=== PATIENT | female | born 1980 | race Caucasian/White ===

== ENCOUNTER → 2017-10-03 | Day surgery (SDC) | payer OTHER, SELFPAY ==
--- NOTE | 2017-10-02 12:46 | Pre Op History & Physical ---
CHIEF COMPLAINT: Lesion in the hypopharynx. HISTORY OF PRESENT ILLNESS: This 36-year-old female was noted to have a lesion in her hypopharynx during an EGD by Dr. Laguerre. The patient has history of globus sensation and hoarseness for about a year. She denies any dysphagia or odynophagia. SOCIAL HISTORY: The patient is a nonsmoker, nondrinker. She has no weight changes. REVIEW OF SYSTEMS: Showed no recent cardiovascular, respiratory or GI problem. PAST MEDICAL HISTORY: Patient has no significant medical problem. PAST SURGICAL HISTORY: Patient has previous posterior fossa decompression, cholecystectomy, cervical fusion, endoscopic sinus surgery, tonsillectomy, breast implant, dental implant, and LASIK surgery to the eye. ALLERGIES: SHE CLAIMS THAT SHE IS ALLERGIC TO ALL IV ANTIBIOTICS AND PENICILLIN. MEDICATIONS: She is on Adderall, triazolam, glycopyrrolate, Lasix, ranitidine, fluoxetine, sucralfate. FAMILY HISTORY: Noncontributory. PHYSICAL EXAMINATION: VITAL SIGNS: Within normal limits. EAR: Showed normal tympanic membranes bilaterally. NOSE: Showed no obvious abnormality. Nasal endoscopy showed questionable polypoid changes in the left piriform sinus area. Mobile vocal folds were noted. No lesion was noted in the other part of the hypopharynx. THROAT: Oropharynx and oral cavity showed no tonsil with Mallampati level 2. NECK: Showed no lymph node or thyroid palpable. CHEST: Showed good air entry bilaterally. CARDIOVASCULAR: Showed S1 and S2. No murmur noted. Mrs. Grissom has a questionable lesion on the piriform sinus on the left side with a history of globus sensation. The suggested treatment is panendoscopy, microlaryngoscopy, biopsy and other necessary procedures. Complications of procedure include but not limited bleeding, infection, perforation of esophagus, pneumomediastinum, mediastinitis, airway compromise, persistent recurrence of the problem. The alternatives would be continued observation, continued antibiotic therapy, topical nasal steroid therapy, systemic steroid therapy, decongestant. The patient has elected to undergo the surgical procedure. Job#: [id number] EV cc:ASHLEIGH MILLAN MD
[~2017-10-03] MED LIST: ACETAMINOPHEN 1000 MG/100 ML 100 ML IV ONE; ADDERALL 30 MG30 MG PO; CARAFATE1 GM/10 ML PO; DEXAMETHASONE SOD PHOS INJ 4 MG/ML VIAL ONE; DIPHENHYDRAMINE HCL INJ 50 MG/ML VIAL ONE; FLUOXETINE HCL40 MG PO; GLYCOPYRROLATE1 MG PO; HALCION PO; LASIX40 MG PO; LIDOCAINE HCL 2% LOCAL INJ 5 ML SDV VIAL INJ ONE; MEPERIDINE HCL INJ 50 MG/ML INJ ONE; MORPHINE SULFATE 2 MG/ML SYR ONE; ONDANSETRON HCL INJ 2 MG/ML VIAL ONE; PROPOFOL IV EMULSION 10 MG/ML 20 ML VIAL ONE; RANITIDINE HCL150 MG PO; ROCURONIUM BROMIDE 10 MG/ML 5ML VIAL ONE; SEVOFLURANE INHAL SOLN 250 ML PEN BTL ONE; SUCCINYLCHOLINE 200 MG/10 ML SYR ONE
--- OUTSIDE RECORDS SUMMARY | 2017-10-03 11:23 | XMS REPORT | Clinical Summary ---
Author Author [employer] [facility] [employer] Address Unknown Phone Unavailable Care Team Providers Care Remote Encoding Operations Supervisor Name Role Phone Asked, Pcp PCP Unavailable Allergies Active Allergy Reactions Severity Noted Date Comments Codeine Anaphylaxis High 08/26/2017 Penicillins Anaphylaxis High 08/26/2017 Sulfa (Sulfonamide Anaphylaxis High 08/26/2017 Antibiotics) Current Medications Prescription Sig. Disp. Refills Start End Date Status Date sucralfate (CARAFATE) 1 Take 1 g by mouth 4 Active gram tablet (four) times a day. ranitidine (ZANTAC) 150 Take 150 mg by mouth 2 Active MG tablet (two) times a day. furosemide (LASIX) 40 mg Take 40 mg by mouth Active tablet daily. FLUoxetine (PROzac) 40 MG Take 40 mg by mouth Active capsule daily. dextroamphetamine-ampheta Take 30 mg by mouth 2 Active mine (ADDERALL) 30 mg (two) times a day. tablet glycopyrrolate (ROBINUL) Take 1 mg by mouth 2 Active 1 mg tablet (two) times a day. triazolam (HALCION) 0.25 Take 0.375 mg by mouth Active MG tablet nightly as needed for sleep. Active Problems Problem Noted Date Chest pain 08/26/2017 Encounters Date Type Specialty Care Team Description 08/26/2017 [facility] General Internal Medicine Mark Tejeda MD Encounter after 10/02/2016 Social History Tobacco Use Types Packs/Day Years Used Date Never Assessed Sex Assigned at Date Recorded Not on file Last Filed Vital Signs Vital Sign Reading Time Taken Blood Pressure 123/83 08/26/2017 7:00 PM CDT Pulse 79 08/26/2017 7:00 PM CDT Temperature 36.2 C (97.1 F) 08/26/2017 7:00 PM CDT Respiratory Rate 19 08/26/2017 7:00 PM CDT Oxygen Saturation 100% 08/26/2017 7:00 PM CDT Inhaled Oxygen - - Concentration Weight - - Height - - Body Mass Index - - Plan of Treatment Not on file Results Not on fileafter 10/02/2016
--- NOTE | 2017-10-03 13:14 | Operative Report ---
DATE OF PROCEDURE: October 03, 2017 CHIEF COMPLAINT: Lesion in the hypopharynx. POSTOPERATIVE DIAGNOSIS: Lesion in the hypopharynx. TITLE OF PROCEDURE: Direct laryngoscopy, rigid esophagoscopy, rigid bronchoscopy, microlaryngoscopy, biopsy of the left piriform sinus posteriorly, biopsy of the midline posterior pharyngeal wall, biopsy of the left tongue base. ANESTHESIA: [facility]esthesiology Group. INDICATIONS: This 36-year-old female has a history of gastroesophageal reflux disease. On her EGD, the general surgeon noted a questionable lesion in her hypopharynx. This was confirmed on flexible laryngoscopy exam in the office. It was decided panendoscopy, microlaryngoscopy, biopsy and other necessary procedures would be beneficial for her. PROCEDURE IN DETAIL: Patient was taken to the operating room, put under general anesthesia, endotracheally intubated. The rigid esophagoscopy was performed. Esophagoscope was passed through the cricopharyngeus muscle. Esophagus was examined to about 25 cm from the incisors. No abnormality was noted. Esophagoscope was retrieved. The rigid bronchoscopy was performed. A size 4 bronchoscope with Suarez lex was used. Bronchoscope was passed parallel to the endotracheal tube. The endotracheal tube cuff was deflated. Trachea was examined down to the eliezer. No abnormality was noted. Bronchoscope was retrieved. The endotracheal tube cuff was reinflated. The direct laryngoscopy was performed. The Dedo laryngoscope was used. Oropharynx and oral cavity were examined. Polypoid changes were noted in the hypopharyngeal area. The larynx was examined. The patient was noted have a floppy epiglottis. The larynx was examined. Both the true and false vocal folds were examined. No abnormality was noted. Polypoid changes were noted in the posterior portion of the piriform sinus on the left side. This was biopsied using cup forceps and sent for permanent section. Erythema was noted in the posterior midline pharyngeal wall. This was also biopsied using cup forceps and sent for permanent section. The larynx was examined. The tongue base was examined. Increased lymphoid tissue was noted in the tongue base, worse on the left side. This was biopsied using the cup forceps. The laryngoscope was put on suspension, and the operating microscope was brought in. The hypopharynx and larynx were re-examined. No other abnormality was noted. The patient tolerated the above procedure well with minimal blood loss. She was given 20 mg of Decadron intraoperatively. Patient was able to be transferred to the recovery room in stable condition. Job#: [id number] cc:ASHLEIGH MILLAN MD
== END | disposition home or self-care (01) ==
LOC: OR 11:21
PROVIDERS: ATTEND Otolaryngology Otolaryngology/Facial Plastic Surgery
DX: J39.2 Other diseases of pharynx (principal); K21.9 Gastro-esophageal reflux disease without esophagitis; K25.9 Gastric ulcer, unspecified as acute or chronic, without hemorrhage or perforation; N20.0 Calculus of kidney; Z88.1 Allergy status to other antibiotic agents; Z88.0 Allergy status to penicillin
CPT/HCPCS: 31536; 31622; 43191; 81025; 88305; J1100; J1200; J2001; J2175; J2270; J2405; 88304

== ENCOUNTER → 2017-11-21 | Day surgery (SDC) | payer OTHER ==
[~2017-11-21] MED LIST changes: -ACETAMINOPHEN 1000 MG/100 ML 100 ML IV ONE; +DESFLURANE 240 ML BTL INH ONE; +DEXAMETHASONE SOD PHOS 10 MG/1 ML VIAL ONE; -DEXAMETHASONE SOD PHOS INJ 4 MG/ML VIAL ONE; -DIPHENHYDRAMINE HCL INJ 50 MG/ML VIAL ONE; +EPINEPHRINE HCL INJ 1 MG/ML AMP ONE; +FENTANYL CITRATE/PF 100MCG/2 ML INJ ONE; +GLYCOPYRROLATE INJ 1MG/ 5 ML SYR ONE; +LIDOCAINE 1% W/EPINEPHRINE 20 ML VIAL ONE; +LIDOCAINE HCL (LTA) 4 ML SOLN ONE; +LIDOCAINE HCL 2% JELLY 5 ML TUBE ONE; -MEPERIDINE HCL INJ 50 MG/ML INJ ONE; +MIDAZOLAM HCL 2 MG/2 ML VIAL ONE; -MORPHINE SULFATE 2 MG/ML SYR ONE; +NEOSTIGMINE 5 MG/5ML SYR ONE; -SEVOFLURANE INHAL SOLN 250 ML PEN BTL ONE; -SUCCINYLCHOLINE 200 MG/10 ML SYR ONE
--- NOTE | 2017-11-21 15:26 | Operative Report ---
DATE OF PROCEDURE: November 21, 2017 CHIEF COMPLAINT: Chronic sinusitis, nasal obstruction. POSTOPERATIVE DIAGNOSES: 1. Chronic sinusitis. 2. Nasal obstruction. TITLE OF PROCEDURES: 1. Bilateral anterior and posterior ethmoidectomy. 2. Bilateral maxillary sinus antrostomy. 3. Bilateral resection of polyps maxillary antrum. 4. Bilateral sphenoidectomy. 5. Septoplasty. ANESTHESIA: Anesthesiology group. INDICATIONS: This 37-year-old female has history of nasal obstruction and postnasal drip discharge from her nose. Her condition has been treated with topical nasal steroid, decongestant and antibiotics with no improvement. The patient had endoscopic sinus surgery about 15 years ago, was doing well until recently. On examination she was noted to have a deviated nasal septum to the left side anteriorly about 40%. CT scan of paranasal sinuses showed patient has chronic sinusitis with involvement of the ethmoid sinuses, maxillary sinus and sphenoid sinus and also confirmed the deviated nasal septum. It was decided that endoscopic sinus surgery, septoplasty and other necessary procedures would be beneficial for her. PROCEDURE: Patient was taken to the operating room, put under general anesthesia, endotracheally intubated. Nose was injected with 1% Xylocaine with 1:100,000 epinephrine for hemostasis. Epinephrine-soaked pledget was inserted into the nose. The left paranasal sinuses were approached first. The middle turbinate was medialized. The polypoid changes were noted in the anterior and posterior ethmoid sinus area. Using a microshaver, these areas were dissected systematically. Care was taken during dissection to ascertain the orbit was not entered. The sphenoid sinus was entered through a natural ostium. This was enlarged using a microshaver. Polypoid changes in the sphenoid sinus were dissected using a microshaver. The maxillary antrum natural ostium was enlarged using the microshaver. Polypoid changes in the maxillary antrum were dissected using the microshaver. The right paranasal sinuses were approached. Middle turbinate was medialized. Again synechia was noted restricting the middle turbinate to the lateral wall of the nose. This was dissected using a microshaver. Polypoid changes in the anterior and posterior ethmoid sinuses were dissected with the microshaver. Care was taken during dissection to ascertain the orbit was not entered. The sphenoid sinus was entered through a natural ostium. This was enlarged using a microshaver. Polypoid changes in the sphenoid sinus were dissected using the microshaver. The natural ostium in the maxillary sinus was enlarged using a microshaver. Polypoid changes in the maxillary antrum was dissected using a microshaver. Septoplasty was performed. A hemitransfixion incision was done in the left side. Mucoperichondrial flap was elevated on the left. The quadrangular cartilage was noted to be buckled down to the maxillary crest. A strip of septum was resected inferiorly to free up the posterior constraint of the quadrangular cartilage, thereby straightening up the septum. A portion of the perpendicular plate was still obstructing in the left side middle to posteriorly. These were removed using the Blakesley. The quadrangular cartilage was able to be straightened out, and the septum was drained out. Hemitransfixion incision was closed using 4-0 chromic suture in an interrupted fashion. Septal whipstitch was done using 4-0 plain gut suture to reapproximate the mucoperichondrial flap and prevent septal hematoma formation. Nasopore was inserted into the sinus cavities on either side. This was done to prevent synechia formation and for hemostasis. The patient tolerated the above procedure well with estimated blood loss about 20 mL. She was given 20 mg of Decadron intraoperatively. Patient was able to be transferred to the recovery room in stable condition. Job#: [id number] GUY
--- NOTE | 2017-11-22 10:54 | Pre Op History & Physical ---
CHIEF COMPLAINT: Chronic sinusitis and nasal obstruction. HISTORY OF PRESENT ILLNESS: This 36-year-old female has history of nasal obstruction and postnasal drip discharge from her nose. She has frontal and maxillary pain. She has decreased sense of smell. The patient's condition has been treated with topical nasal steroid, decongestant and antibiotics with no improvement. Patient had endoscopic sinus surgery in November 2003 and was doing well until recently. A CT scan of paranasal sinuses done before surgery showed the patient has chronic sinusitis with involvement of the ethmoid sinuses bilaterally, maxillary sinus involvement on both sides and sphenoid sinus involvement. Slight deviated nasal septum to the left side was also noted. REVIEW OF SYSTEMS: No recent cardiovascular, respiratory or GI problem. PAST MEDICAL HISTORY: The patient has no significant medical problem. PAST SURGICAL HISTORY: She has previous posterior fossa decompression, laminectomy in the C-spine, cholecystectomy, tonsillectomy, breast implant, dental implant, LASIK surgery and endoscopic sinus surgery. ALLERGIES: SHE IS ALLERGIC TO PENICILLIN. SHE CLAIMED ALSO ALLERGIC TO IV ANTIBIOTICS. MEDICATIONS: She is on Adderall, triazolam, glycopyrrolate, Lasix, ranitidine, fluoxetine, sucralfate. SOCIAL HISTORY: Nonsmoker, nondrinker. FAMILY HISTORY: Noncontributory. PHYSICAL EXAMINATION VITAL SIGNS: Within normal limits. EARS: Exam shows normal tympanic membranes bilaterally. NOSE: Hypertrophy of inferior turbinate. THROAT: Oropharynx and oral cavity showed no obvious abnormality. NECK: No lymph node or thyroid palpable. CHEST: Good air entry bilaterally. CARDIOVASCULAR: S1 and S2. No murmur noted. Mrs. Grissom has chronic sinusitis and nasal obstruction, which have been resistant to conservative therapy. The suggested treatment is endoscopic sinus surgery, septoplasty, resection of inferior turbinate and other necessary procedure. The complications of procedure include but not limited to bleeding, infection, CSF leak, blindness, double vision, meningitis, septal perforation, septal hematoma, persistent nasal obstruction, persistent nasal crusting, nasal deformity, or recurrence of the sinus problem. The alternative would be continued observation, continued antibiotic therapy, topical nasal steroid therapy, systemic steroid therapy, decongestant. The patient and her have elected to undergo the surgical procedure. Job#: [id number] cc:ASHLEIGH MILLAN MD
== END | disposition home or self-care (01) ==
LOC: OR 09:14
PROVIDERS: ATTEND Otolaryngology Otolaryngology/Facial Plastic Surgery
DX: J32.0 Chronic maxillary sinusitis (principal); J32.2 Chronic ethmoidal sinusitis; J32.3 Chronic sphenoidal sinusitis; J34.2 Deviated nasal septum; J34.3 Hypertrophy of nasal turbinates; J33.8 Other polyp of sinus; J34.89 Other specified disorders of nose and nasal sinuses; K21.9 Gastro-esophageal reflux disease without esophagitis; N20.0 Calculus of kidney; Z88.1 Allergy status to other antibiotic agents; Z88.0 Allergy status to penicillin
CPT/HCPCS: 30520; 31255; 31267; 31288; 81025; 88305; J0171; J1100; J2001 ×2; J2250; J2405; J3490